=== PATIENT | female | born 1990 | race Caucasian/White ===

== ENCOUNTER 2019-09-22 09:26 | Emergency (ER) | payer MEDICAID ==
[~2019-09-22] VITALS: Ht 147.3 cm; Wt 56.8 kg
[2019-09-22 09:43] VITALS: BP 114/75; Ht 147.3 cm; Wt 56.8 kg
== END 2019-09-22 11:25 | disposition left against medical advice (07) ==
LOC: D.ER 09:26
DX: R51 Headache (principal)